=== PATIENT | male | born 1955 | race Caucasian/White ===

== ENCOUNTER 2024-07-01 13:15 | Inpatient (IN) | payer BC, MEDICAID ==
[~2024-07-01] VITALS: Ht 182.9 cm; Wt 95.0 kg
--- NOTE | 2024-07-01 15:03 | ED.PDOC ---
History of Present Illness HPI Comments 69-year-old male with a history of hypertension brought in by self, referred by urgent care for evaluation of possible osteomyelitis. Patient states he accidentally cut his right index finger with a knife about a week ago, and since that time he has developed redness, pain and swelling in his right index finger. The laceration has completely healed. He was seen at urgent Care today, had x- rays which showed following: Prominent soft tissue swelling in the 2nd digit. Possible foreign bodies adjacent to the tuft of the distal phalanx. Possible osteomyelitis in the distal phalanx of the 2nd digit. Correlate with clinical findings. If clinically indicated, MRI could be obtained to further characterize. Patient denies any fever, however states the pain is severe. He denies any numbness, weakness or limited range of motion. Chief Complaint: Upper Extremity Time Seen by MD: 14:20 Primary Care Provider: MARNIE Keane Notes: Nurses Notes, Medications, Allergies Allergies: Coded Allergies: NO KNOWN ALLERGIES (Unverified , 07/01/24) Information Source: Patient Mode of Arrival: Ambulatory Severity: Moderate Timing: Days Duration: Since onset, Days Prehospital treatment: None Past Medical History PAST MEDICAL HISTORY: HTN Surgical History: Denies all surgeries Family History Family History: Reviewed,noncontributory to illness, Unknown Social History Smoker: Non-Smoker Alcohol: Denies ETOH Use Drugs: Denies Drug Use Lives In: Home Constitutional: reports: others (Index finger on the right hand is swollen); denies: chills, diaphoresis, fatigue, fever, malaise, sweats, weakness EENTM: denies: blurred vision, double vision, ear bleeding, ear discharge, ear drainage, ear pain, ear ringing, eye pain, eye redness, hearing loss, mouth pain, mouth swelling, nasal discharge, nose bleeding, nose congestion, nose pain, photophobia, tearing, throat pain, throat swelling, voice changes, others Respiratory: denies: cough, hemoptysis, orthopnea, SOB at rest, shortness of breath, SOB with excertion, stridor, wheezing, others Cardiovascular: denies: chest pain, dizzy spells, diaphoresis, Dyspnea on exertion, edema, irregular heart beat, left arm pain, lightheadedness, palpit ations, PND, syncope, others Gastrointestinal: denies: abdomen distended, abdominal pain, blood streaked b owels, constipated, diarrhea, dysphagia, difficulty swallowing, hematemesis, melena, nausea, poor appetite, poor fluid intake, rectal bleeding, rectal pain, vomiting, others Genitourinary: denies: burning, dysuria, flank pain, frequency, hematuria, incontinence, penile discharge, penile sore, pain, testicle pain, testicle swelling, urgency, others Neurological: denies: dizziness, fainting, headache, left sided numbness, left sided weakness, numbness, paresthesia, pre-existing deficit, right sided numbness, right sided weakness, seizure, speech problems, tingling, tremors, weakness, others Musculoskeletal: denies: back pain, gout, joint pain, joint swelling, muscle pain, muscle stiffness, neck pain, others Integumetry: denies: bruises, change in color, change in hair/nails, dryness, laceration, lesions, lumps, rash, wounds, others Allergic/Immunocompromised: denies: Difficulty Healing, Frequent Infections, Hives, Itching, others Hematologic/Lymphatic: denies: anemia, blood clots, easy bleeding, easy bruisi ng, swollen glands, others Endocrine: denies: excessive hunger, excessive sweating, excessive thirst, exce ssive urination, flushing, intolerance to cold, intolerance to heat, unexplained weight gain, unexplained weight loss, others Psychiatric: denies: anxiety, bipolar disorder, depression, hopeless, panic disorder, schizophrenia, sleepless, suicidal, others All Other Systems: Reviewed and Negative Physical Exam General Appearance: No Apparent Distress HEENT: Normal ENT Inspection Neck: Full Range of Motion, Normal Inspection Respiratory: Lungs Clear, No Accessory Muscle Use, No Respiratory Distress, Normal Breath Sounds Cardiovascular: No Edema, No JVD, Regular Rate/Rhythm Breast Exam: Deferred Gastrointestinal: Non Tender, Soft Genitalia: Deferred Pelvic: Deferred Rectal: Deferred Extremities: Normal range of motion, No pedal edema, Swelling, Tender, Other (Right index finger diffuse soft tissue swelling and tenderness with moderate erythema. No fluctuance or discharge.) Neurologic: Alert, No Motor Deficits, Normal Affect, Normal Mood, No Sensory Deficits Cerebellar Function: NOT DONE Reflexes: NOT DONE Skin: Dry, Warm, Other (Right index finger erythema, greatest at the distal aspect.) Lymphatic: NOT DONE Was a procedure done? Was a procedure done?: No Differential Dx Considerations may include: Cellulitis, abscess, retained foreign body, osteomyelitis, sepsis, among others X-Ray, Labs, Meds, VS Vital Signs Date Time Temp Pulse Resp B/P (MAP) Pulse Ox O2 Delivery O2 Flow Rate FiO2 07/01/24 13:25 97.9 76 16 131/74 (93) 94 Lab Test 07/01/24 14:48 Range/Units White Blood Count 16.9 H 4.4-10.8 10^3/uL Red Blood Count 5.50 4.5-5.90 10^6/uL Hemoglobin 16.5 13.5-17.5 g/dL Hematocrit 48.1 41.0-53.0 % Mean Corpuscular Volume 87.5 80.0-100.0 fL Mean Corpuscular Hemoglobin 30.1 28.0-32.0 pg Mean Corpuscular Hemoglobin Concent 34.4 32.0-36.0 g/dL Red Cell Distribution Width 13.2 11.8-14.3 % Platelet Count 285 140-450 10^3/uL Mean Platelet Volume 8.7 6.9-10.8 fL Neutrophils (%) (Auto) 70.7 37.0-80.0 % Lymphocytes (%) (Auto) 15.9 10.0-50.0 % Monocytes (%) (Auto) 9.5 0.0-12.0 % Eosinophils (%) (Auto) 3.0 0.0-7.0 % Basophils (%) (Auto) 0.9 0.0-2.0 % Neutrophils # (Auto) 11.9 H 1.6-8.6 10 ^3/uL Lymphocytes # (Auto) 2.7 0.4-5.4 10 ^3/uL Monocytes # (Auto) 1.6 H 0-1.3 10 ^3/uL Eosinophils # (Auto) 0.5 0-0.8 10 ^3/uL Basophils # (Auto) 0.2 0-0.2 10 ^3/uL Nucleated Red Blood Cells 0.1 % Sodium Level 137 136-145 mmol/L Potassium Level 4.3 3.5-5.1 mmol/L Chloride Level 107 98-107 mmol/L Carbon Dioxide Level 20 20-31 mmol/L Anion Gap 10 5-15 Blood Urea Nitrogen 16 9-23 mg/dL Creatinine 0.98 0.700-1.30 mg/dL Glomerular Filtration Rate Calc 82 >90 mL/min BUN/Creatinine Ratio 16.3 10.0-20.0 Serum Glucose 91 74-106 mg/dL Lactic Acid Level 1.0 0.4-2.0 mmol/L Calcium Level 10.1 8.7-10.4 mg/dL X-Ray, Labs, Meds, VS Comment 69-year-old male with a history of hypertension presenting with right index finger pain, redness and swelling, referred by urgent care for possible osteomyelitis Vitals remarkable for oxygen saturation 94% on room air Exam remarkable for right index finger erythema, soft tissue swelling and tenderness Right hand x-ray report reviewed : Prominent soft tissue swelling in the 2nd digit. Possible foreign bodies adjacent to the tuft of the distal phalanx. Possible osteomyelitis in the distal phalanx of the 2nd digit. Correlate with clinical findings. If clinically indicated, MRI could be obtained to further characterize. CBC remarkable for WBC 16.9, BMP and lactate unremarkable. Patient treated with the following in the ED: Zosyn 4.5 g IV, morphine 4 mg IV, Zofran 4 mg IV, Tdap 0.5 mL IM On re-evaluation, patient stated pain had improved, vitals were stable, right upper extremity neurovascularly intact. Plan is to admit the patient for IV antibiotics and MRI to evaluate for osteomyelitis. Time of 1ST Reevaluation: 14:50 Reevaluation 1ST: Unchanged Time of 2ND Reevaluation: 17:01 Reevaluation 2ND: Improved Patient Education/Counseling: Diagnosis, Treatment, Prognosis Family Education/Counseling: No Family Present Additional Information - The following tests were ordered, and results were reviewed by me: Labs, PHA and review urgent care X-ray - I reviewed and agreed with the following test results read by other provider: UC X-ray - I discussed treatments and results with medical personnel and: (consultants, family) Departure 1 Departure Time of Disposition: 17:01 Impression: Primary Impression: Finger osteomyelitis, right Disposition: 09 ADMITTED INPATIENT Admit to: Med Surg Condition: Fair Critical Care Note Critical Care Time?: No Stability Stability form required: No Heart Score Heart Score: Heart Score Response (Comments) Value History N/A 0 EKG N/A 0 Age N/A 0 Risk Factors N/A 0 Troponin N/A 0 Total 0 I personally scribed for KYLIE PHAM MD ([email or web address]) on 07/01/24 at 15:03. Electronically submitted by Ajay Joyner ([email or web address]). KYLIE PHAM MD Jul 01, 2024 15:03
[2024-07-01 15:16] LABS: Anion Gap 10 (5-15); Carbon Dioxide 20 mmol/L (20-31); Chloride 107 mmol/L (98-107); Potassium 4.3 mmol/L (3.5-5.1); Sodium 137 mmol/L (136-145)
[2024-07-01 15:17] LABS: Calcium 10.1 mg/dL (8.7-10.4)
[2024-07-01 15:19] LABS: Basophils # (auto) 0.2 10 ^3/uL (0-0.2); Basophils % (auto) 0.9 % (0.0-2.0); Eosinophils # (auto) 0.5 10 ^3/uL (0-0.8); Hematocrit 48.1 % (41.0-53.0); Hemoglobin 16.5 g/dL (13.5-17.5); Lymphocytes # (auto) 2.7 10 ^3/uL (0.4-5.4); Lymphocytes % (auto) 15.9 % (10.0-50.0); Mean Corpuscular Hemoglobin 30.1 pg (28.0-32.0); Mean Corpuscular Hgb Conc. 34.4 g/dL (32.0-36.0); Mean Corpuscular Volume 87.5 fL (80.0-100.0); Monocytes # (auto) 1.6 10 ^3/uL (0-1.3); Monocytes % (auto) 9.5 % (0.0-12.0); Neutrophils # (auto) 11.9 10 ^3/uL (1.6-8.6); Neutrophils % (auto) 70.7 % (37.0-80.0); Nucleated Red Blood Cells % 0.1 %; Platelet Count (auto) 285 10^3/uL (140-450); Red Cell Distribution Width 13.2 % (11.8-14.3); White Blood Cell 16.9 10^3/uL (4.4-10.8)
[2024-07-01 15:22] LABS: BUN/Creatinine Ratio 16.3 (10.0-20.0); Blood Urea Nitrogen 16 mg/dL (9-23); Glucose 91 mg/dL (74-106)
[2024-07-01] MEDS ORDERED: ONDANSETRON HCL 4 MG/2 ML VIAL IV PRN (18:15)
[2024-07-01] MEDS ORDERED: ACETAMINOPHEN 325 MG TAB PO PRN (18:15)
[2024-07-01] MEDS ORDERED: MAALOX PLUS or MAALOX 30 ML PO PRN (18:15)
[2024-07-01] MEDS ORDERED: VANCOMYCIN PER PHARMACY 0 MG IV SCH (18:15)
[2024-07-01] MEDS ORDERED: DOCUSATE SOD 100 MG CAP PO PRN (18:15)
--- NOTE | 2024-07-01 18:30 | DVHHP2 ---
History of Present Illness Reason for Visit: Hand pain History of Present Illness 69-year-old patient comes into the ED for evaluation of recommendation for admission patient has a history of hypertension initially was evaluated in urgent care urgent care since the patient to the ED after cutting himself with a knife 2 weeks ago the initial feels the patient has possible osteo and was recommended for further evaluation patient was seen in the ED recommended for admission and further evaluation Cardiovascular: HTN Review of Systems Constitutional: Yes: Weakness; No: Fever, Chills, Sweats, Malaise, Other Eyes: No: Pain, Vision change, Conjunctivae inflammation, Eyelid inflammation, Other, Redness ENT: No: Ear pain, Ear discharge, Nose pain, Nose discharge, Nose congestion, Mouth pain, Mouth swelling, Throat pain, Throat swelling, Other Respiratory: No: Cough, Dry, Shortness of breath, SOB with excertion, Wheezing, Hemoptysis, Pleuritic Pain, Sputum, Wheezing, Other Cardiovascular: No: Chest Pain, Palpitations, Orthopnea, Paroxysmal Noc. Dyspnea, Edema, Lt Headedness, Other Gastrointestinal: No: Nausea, Vomiting, Abdominal Pain, Diarrhea, Constipation, Melena, Hematochezia, Other Genitourinary: No Dysuria, No Frequency, No Incontinence, No Hematuria, No Retention, No Other Musculoskeletal: hand pain; No: other, neck pain, shoulder pain, arm pain, back pain, leg pain, foot pain Skin: No: Rash, Lesions, Jaundice, Bruising, Other Neurological: No: Weakness, Numbness, Incoordination, Change in speech, Confusion, Seizures, Other Allergies: Coded Allergies: NO KNOWN ALLERGIES (Unverified , 07/01/24) Exam Vital Signs Vital Signs Date Time Temp Pulse Resp B/P (MAP) Pulse Ox O2 Delivery O2 Flow Rate FiO2 07/01/24 13:25 97.9 76 16 131/74 (93) 94 General Appearance: Alert, Oriented X3, mild distress HEENT: Atraumatic, PERRLA, EOMI Respiratory: Clear to auscultation, Normal air movement Cardiovascular: Normal S1, Normal S2 Abdominal: Normal bowel sounds, Soft, No tenderness Extremities: No clubbing, No cyanosis Skin: No rashes, No breakdown Neuro: Normal gait, Normal speech Psych/Mental Status: Mood NL Labs/Xrays Labs Test 12/1/24 14:48 Range/Units White Blood Count 16.9 H 4.4-10.8 10^3/uL Red Blood Count 5.50 4.5-5.90 10^6/uL Hemoglobin 16.5 13.5-17.5 g/dL Hematocrit 48.1 41.0-53.0 % Mean Corpuscular Volume 87.5 80.0-100.0 fL Mean Corpuscular Hemoglobin 30.1 28.0-32.0 pg Mean Corpuscular Hemoglobin Concent 34.4 32.0-36.0 g/dL Red Cell Distribution Width 13.2 11.8-14.3 % Platelet Count 285 140-450 10^3/uL Mean Platelet Volume 8.7 6.9-10.8 fL Neutrophils (%) (Auto) 70.7 37.0-80.0 % Lymphocytes (%) (Auto) 15.9 10.0-50.0 % Monocytes (%) (Auto) 9.5 0.0-12.0 % Eosinophils (%) (Auto) 3.0 0.0-7.0 % Basophils (%) (Auto) 0.9 0.0-2.0 % Neutrophils # (Auto) 11.9 H 1.6-8.6 10 ^3/uL Lymphocytes # (Auto) 2.7 0.4-5.4 10 ^3/uL Monocytes # (Auto) 1.6 H 0-1.3 10 ^3/uL Eosinophils # (Auto) 0.5 0-0.8 10 ^3/uL Basophils # (Auto) 0.2 0-0.2 10 ^3/uL Nucleated Red Blood Cells 0.1 % Sodium Level 137 136-145 mmol/L Potassium Level 4.3 3.5-5.1 mmol/L Chloride Level 107 98-107 mmol/L Carbon Dioxide Level 20 20-31 mmol/L Anion Gap 10 5-15 Blood Urea Nitrogen 16 9-23 mg/dL Creatinine 0.98 0.700-1.30 mg/dL Glomerular Filtration Rate Calc 82 >90 mL/min BUN/Creatinine Ratio 16.3 10.0-20.0 Serum Glucose 91 74-106 mg/dL Lactic Acid Level 1.0 0.4-2.0 mmol/L Calcium Level 10.1 8.7-10.4 mg/dL Assessment/Plan Assessment/Plan Admit to med surge Suspected osteomyelitis IV antibiotics IV hydration Surgical evaluation P.r.n. medications for pain Plan discussed with: Patient My Orders Orders - JENNIFER SANDY MD Procedure Category Date Status Time Vancomycin Per [facility] 07/01/24 Verified Pharmacy 18:15 Zosyn Extended [facility] 07/01/24 Verified Infusion 22:00 R Hand 3 View Xray XY 07/01/24 Verified 18:05 Admit ADMIT 07/01/24 Verified 18:05 Code Status CODE 07/01/24 Verified 18:05 Vital Signs [facility] 07/01/24 Verified 18:05 Review Orders With [facility] 07/01/24 Verified Adm.Md 18:05 Regular Diet DIET 07/01/24 Verified Dinner Sodium Chloride 0.9% [facility] 07/01/24 Verified 18:15 Lorazepam Tablet [facility] 07/01/24 Verified (Ativan Tablet) 18:15 Alum & Mag [facility] 07/01/24 Verified Hydrox-Simethicone 18:15 Docusate Sodium [facility] 07/01/24 Verified Capsule (Colace 18:15 Acetaminophen Tablet [facility] 07/01/24 Verified (Tylenol Tablet) 18:15 Temazepam (Restoril) [facility] 07/01/24 Verified 18:15 Notify Md Of Changes [facility] 07/01/24 Verified From Base 18:05 Advance Directive [facility] 07/01/24 Verified 18:05 Basic Metabolic Panel LAB 07/02/24 Verified 04:00 Complete Blood Count LAB 07/02/24 Verified 04:00 Patient Condition ORDERS 07/01/24 Verified 18:05 Allergies [facility] 07/01/24 Verified 18:05 Hydrocodone-Acet [facility] 07/01/24 Verified 5/325mg Tab ([place] 18:15 Ondansetron Hcl [facility] 07/01/24 Verified (Zofran) 18:15 Morphine 2mg Iv Q4hprn [facility] 07/01/24 Verified 18:15 Notify Md Of Changes [facility] 07/01/24 Verified From Base 18:05 Oxygen By Nasal RT 07/01/24 Verified Cannula 18:05 Problem List: (1) Finger osteomyelitis, right Date of Service: Jul 01, 2024 Billing Provider: JENNIFER SANDY MD Common Visit Codes: [id number] INP/OBS CARE (HIGH) JENNIFER SANDY MD Jul 01, 2024 18:30
--- NOTE | 2024-07-01 18:47 | DVH ---
CLINICAL INDICATION: osteo TECHNIQUE: 4 radiographic views of the hand were obtained. Comparison: None FINDINGS/IMPRESSION: Soft tissue swelling is noted over the distal phalanx of the right index finger with diffuse osteopor otic changes of the distal phalanx. Can not exclude osteomyelitis. The visualized joint space is well maintained. The alignment is anatomical. There is no radiopaque foreign body.
[2024-07-01] MEDS: TETANUS-DIPTH-ACEL PERTUSSIS 0.5ML SYR Tdap IM ONE (20:20)
[2024-07-01 20:38] VITALS: PULSE 85; RESP 17; O2SAT 94
[2024-07-01] MEDS: ONDANSETRON HCL 4 MG/2 ML VIAL IV ONE (20:56)
[2024-07-01] MEDS: MORPHINE SULFATE 4 MG/ML SYR/VIAL IV ONE (20:57)
[2024-07-01] MEDS: PIPERACILLIN-TAZO 4.5GM 100 ML IV ONE (21:14)
[2024-07-01] MEDS: SODIUM CHLORIDE 0.9% 1,000 ML IV SCH (21:26)
[2024-07-01] MEDS: VANCOMYCIN 1GM/250ML KIT 200 ML IV ONE (22:32)
[2024-07-02 00:04] LABS: Urine Bacteria None Seen /hpf (None Seen)
[2024-07-02 00:17] LABS: Urine Blood Negative /uL (Negative); Urine Clarity Clear (Clear); Urine Color Light-Yellow (Yellow); Urine Protein, UAD TRACE (Negative); Urine Specific Gravity 1.022 (1.001-1.035); Urine Urobilinogen Normal (Negative); Urine WBC 3 /hpf (0 - 3); Urine pH 5.5 (5.0-9.0)
[2024-07-02] MEDS: VANCOMYCIN 1GM/250ML KIT 200 ML IV ONE (01:50)
[2024-07-02] MEDS: PIPERACILLIN-TAZOB 3.375GM 100 ML IV SCH (01:55)
[2024-07-02] MEDS: MORPHINE SULFATE INJ 2 MG/ml SYRG IV PRN (05:33)
[2024-07-02 05:44] LABS: Basophils # (auto) 0 10 ^3/uL (0-0.2); Basophils % (auto) 0.3 % (0.0-2.0); Eosinophils # (auto) 0.4 10 ^3/uL (0-0.8); Eosinophils % (auto) 2.7 % (0.0-7.0); Hematocrit 44.8 % (41.0-53.0); Hemoglobin 15.4 g/dL (13.5-17.5); Lymphocytes # (auto) 2.3 10 ^3/uL (0.4-5.4); Lymphocytes % (auto) 16.9 % (10.0-50.0); Mean Corpuscular Hgb Conc. 34.3 g/dL (32.0-36.0); Mean Corpuscular Volume 87.5 fL (80.0-100.0); Monocytes # (auto) 1.4 10 ^3/uL (0-1.3); Monocytes % (auto) 10.5 % (0.0-12.0); Neutrophils # (auto) 9.6 10 ^3/uL (1.6-8.6); Neutrophils % (auto) 69.6 % (37.0-80.0); Platelet Count (auto) 255 10^3/uL (140-450); Red Blood Cells 5.12 10^6/uL (4.5-5.90); Red Cell Distribution Width 13.3 % (11.8-14.3); White Blood Cell 13.8 10^3/uL (4.4-10.8)
[2024-07-02 05:47] LABS: Chloride 107 mmol/L (98-107); Potassium 4.2 mmol/L (3.5-5.1); Sodium 138 mmol/L (136-145)
[2024-07-02 05:48] LABS: Anion Gap 10 (5-15); Carbon Dioxide 21 mmol/L (20-31)
[2024-07-02 05:49] LABS: Calcium 9.7 mg/dL (8.7-10.4)
[2024-07-02 05:53] LABS: BUN/Creatinine Ratio 16.3 (10.0-20.0); Blood Urea Nitrogen 16 mg/dL (9-23); Glucose 92 mg/dL (74-106)
[2024-07-02 08:00] VITALS: PULSE 88; RESP 18; O2SAT 97
[2024-07-02] MEDS: HYDROcodone-ACET 5/325MG TAB PO PRN (13:04)
[2024-07-02] MEDS: LORazepam 0.5 MG TAB PO PRN (14:57)
--- NOTE | 2024-07-02 16:19 | DVHPN2 ---
Subjective 69 year old male history of hypertension, prediabetic, injured his right index finger about a week ago while working on a truck when his hand was crushed by a metal piece. He developed infection and swelling of the distal phalanx of his index finger He came here yesterday because he was getting worse Changes from previous H/P or p: Changes Eyes: No Pain, No Vision change, No Conjunctivae inflammation, No Eyelid inflammation, No Other, No Redness ENT: No Ear pain, No Ear discharge, No Nose pain, No Nose discharge, No Nose congestion, No Mouth pain, No Mouth swelling, No Throat pain, No Throat swelling, No Other Cardiovascular: No Chest Pain, No Palpitations, No Orthopnea, No Paroxysmal Noc. Dyspnea, No Edema, No Lt Headedness, No Other Respiratory: No Cough, No Dry, No Shortness of breath, No SOB with excertion, No Wheezing, No Hemoptysis, No Pleuritic Pain, No Sputum, No Other Gastrointestinal: No Nausea, No Vomiting, No Abdominal Pain, No Diarrhea, No Constipation, No Melena, No Hematochezia, No Other Genitourinary: No Dysuria, No Frequency, No Incontinence, No Hematuria, No Retention, No Other Musculoskeletal: No other, No neck pain, No shoulder pain, No arm pain, No back pain; hand pain; No leg pain, No foot pain Skin: No Rash, No Lesions, No Jaundice, No Bruising, No Other Objective Vitals Vital Signs Date Time Temp Pulse Resp B/P (MAP) Pulse Ox O2 Delivery O2 Flow Rate FiO2 07/02/24 14:36 98.3 78 18 114/66 (82) 91 98.3 07/02/24 08:00 Room Air* 0 21 Intake/Output Intake and Output 07/02/24 07:00 Intake Total 300 ml Balance 300 ml Intake IV Total 300 ml General Appearance: Alert, Oriented X3, Cooperative, No acute distress Lungs: Clear to auscultation Cardiovascular: Regular rate, Normal S1 Abdomen: Normal bowel sounds, Soft, No tenderness Extremities: No edema Medications Current Medications Medications Dose Ordered Sig/[place] Route Start Time Stop Time Status Last Admin Dose Admin Vancomycin HCl 0 ml @ 0 mls/hr UD IV 07/01/24 18:15 Piperacillin Sod/ Tazobactam Sod 100 ml @ 100 mls/hr Q8HR IV 07/01/24 22:00 07/02/24 14:32 100 MLS/HR Lorazepam 0.5 mg Q6HP PRN PO 07/01/24 18:15 07/02/24 14:57 0.5 MG Al Hydrox/Mg Hydrox/Simethicone 30 ml Q6HP PRN PO 07/01/24 18:15 Docusate Sodium 100 mg BIDPRN PRN PO 07/01/24 18:15 Acetaminophen 650 mg Q6HP PRN PO 07/01/24 18:15 Temazepam 15 mg QHSP PRN PO 07/01/24 18:15 Acetaminophen/ Hydrocodone Bitart 1 tab Q4HP PRN PO 07/01/24 18:15 07/02/24 13:04 1 TAB Ondansetron HCl 4 mg Q4HP PRN IV 07/01/24 18:15 Morphine Sulfate 2 mg Q4HPRN PRN IV 07/01/24 18:15 07/02/24 05:33 2 MG Vancomycin HCl 150 ml @ 150 mls/hr Q12H IV 07/02/24 18:00 Cancel Vancomycin HCl 750 mg/Dextrose 100 ml @ 100 mls/hr Q12H IV 07/02/24 18:00 Laboratory Results Laboratory Tests 07/02/24 04:55 Chemistry Test 07/02/24 04:55 Calcium Level 9.7 mg/dL (8.7-10.4) Urinalysis Test 07/02/24 00:00 Urine Color Light-yellow (Yellow) Urine Clarity Clear (Clear) Urine pH 5.5 (5.0-9.0) Urine Specific [place] 1.022 (1.001-1.035) Urine Protein Trace (Negative) H Urine Ketones Trace (Negative) Urine Blood Negative /uL (Negative) Urine Nitrite Negative (Negative) Urine Bilirubin Negative (Negative) Urine Urobilinogen Normal mg/dL (Negative) Urine Leukocyte Esterase Negative /uL (Negative) Urine RBC 1 /hpf (0 - 3) Urine WBC 3 /hpf (0 - 3) Urine Squamous Epithelial Cells Few /hpf (<5) Urine Bacteria None seen /hpf (None Seen) Urine Glucose Normal mg/dL (Normal) Assessment/Plan Assessment/Plan Cellulitis of the right index finger, rule out abscess Rule out osteomyelitis Prediabetic Hypertension Leukocytosis Plan Continue IV antibiotics Zosyn and vancomycin Orthopedic consultation Resume the home medications CT scan of the right hand to rule out abscess formation Plan discussed with: Patient My Orders Orders - ASIA HUBER MD Procedure Category Date Status Time *Consult Dr. Tavera CONS 07/02/24 Verified Lisa 16:15 Ct R Hand Wo Contrast CT 07/02/24 Verified 16:15 Date of Service: Jul 02, 2024 Billing Provider: ASIA HUBER MD Common Visit Codes: NOT BILLABLE ASIA HUBER MD Jul 02, 2024 16:19
[2024-07-02] MEDS ORDERED: VANCOMYCIN 750mg/150ml 150 ML IV SCH (18:00)
[2024-07-02 18:30] VITALS: BP_SYST 136; BP_SYST 137; BP_DIAS 79; BP_DIAS 82; PULSE 71; PULSE 76; RESP 18; RESP 19; TEMP 97.7; TEMP 98.7; O2SAT 94
[2024-07-02] MEDS: VANCOMYCIN 750MG VIAL 750 MG in D5W 5% 100 ML IV SCH (20:18)
[2024-07-02 21:00] VITALS: BP 128/79; PULSE 80; RESP 18; TEMP 97.8; O2SAT 93
[2024-07-03 01:00] VITALS: BP 137/76; PULSE 74; RESP 18; TEMP 97.6; O2SAT 91
--- NOTE | 2024-07-03 03:43 | DVH ---
INDICATION: index finger cellulitis rule out abscess COMPARISON: Right hand radiograph dated 07/01/2024 TECHNIQUE: CT of the right hand was performed without contrast. Volume transverse images were obtaine d and reconstructed in multiple planes using bone and soft tissue algorithms. CONTRAST: None Radiation Dose Information: CTDI volume is 51.12 mGy. Dose-length product is 1625.87 mGy*cm FINDINGS: The alignment is normal. Advanced degenerative changes throughout the carpal bones, radiocarpal joint space and 1st CMC. There is no fracture or dislocation. Diffuse soft-tissue edema and swelling most prominent around the distal 2nd digit. Bony destructive changes are associated with the distal phalanx of the 2nd digit. No discrete fluid collection or abscess. IMPRESSION: Bony destructive changes and soft-tissue edema and swelling associated with the distal phalanx of the 2nd digit is suspicious for cellulitis and osteomyelitis. Clinical correlation advised. All CT scans at this medical facility are performed using dose modulation techniques as appropriate t o a performed exam including the following: Automated exposure control was utilized; adjustment of th e MA and/or KV according to patient size; and use of iterative reconstruction technique.
[2024-07-03 05:00] VITALS: BP 132/79; PULSE 70; RESP 18; TEMP 97.8; O2SAT 95
[2024-07-03] MEDS ORDERED: LISI40TA16 PO (06:35)
[2024-07-03] MEDS ORDERED: AMLO1TAB23 PO (06:35)
[2024-07-03] MEDS ORDERED: METF-370 PO (06:35)
[2024-07-03] MEDS ORDERED: SILD100T73 PO (06:35)
[2024-07-03] MEDS ORDERED: ALBUAER3 IN (06:36)
[2024-07-03 07:41] LABS: Basophils # (auto) 0 10 ^3/uL (0-0.2); Basophils % (auto) 0.3 % (0.0-2.0); Eosinophils # (auto) 0.5 10 ^3/uL (0-0.8); Eosinophils % (auto) 3.8 % (0.0-7.0); Hematocrit 44.6 % (41.0-53.0); Hemoglobin 15.2 g/dL (13.5-17.5); Lymphocytes # (auto) 1.9 10 ^3/uL (0.4-5.4); Lymphocytes % (auto) 14.4 % (10.0-50.0); Mean Corpuscular Hemoglobin 29.9 pg (28.0-32.0); Mean Corpuscular Hgb Conc. 34.1 g/dL (32.0-36.0); Mean Corpuscular Volume 87.7 fL (80.0-100.0); Monocytes # (auto) 1.4 10 ^3/uL (0-1.3); Monocytes % (auto) 10.7 % (0.0-12.0); Neutrophils # (auto) 9.1 10 ^3/uL (1.6-8.6); Neutrophils % (auto) 70.8 % (37.0-80.0); Platelet Count (auto) 238 10^3/uL (140-450); Red Blood Cells 5.09 10^6/uL (4.5-5.90); Red Cell Distribution Width 13.1 % (11.8-14.3); White Blood Cell 12.8 10^3/uL (4.4-10.8)
[2024-07-03 09:00] VITALS: BP 140/75; PULSE 67; RESP 18; TEMP 98; O2SAT 96
--- NOTE | 2024-07-03 12:31 | DVHINCON2 ---
Date of service: Jul 03, 2024 Reason for Consultation Right index finger infection History of Present Illness Mr. Rojas is a 69-year-old male who came to the hospital due to him cutting himself with a knife approximately one week ago where the patient noted that the next day he could not find the laceration and thought he was healed but began developing swelling and pain that progressively worsened. Patient came into the urgent care and was evaluated and advised to come to the emergency department and was admitted due to concerns of possible osteomyelitis. Patient is otherwise feeling well denying any other complaints or concerns during my evaluation denying any chest pain, shortness of breath, nausea, vomiting, fever, or chills. Past Medical History Hypertension Past Surgical History Denies Family History: Diabetes mellitus G8 FATHER FH: kidney disease G8 FATHER Family History Noncontributory Social History Patient denies smoking, EtOH, or illicit substance abuse Allergies: Coded Allergies: NO KNOWN ALLERGIES (Unverified , 07/01/24) Home Meds Reported Medications Albuterol Sulfate (VENTOLIN MDI) 90 Mcg Ih, 108 MCG IN, INH 07/03/24 Lisinopril (Lisinopril) 40 Mg Tab, 1 TAB PO DAILY 07/03/24 Metformin Hydrochloride (Metformin Hcl) 500 Mg Tab, 1 TAB PO BID 07/03/24 Amlodipine Besylate (Amlodipine Besylate) 10 Mg Tab, 1 TAB PO DAILY 07/03/24 Sildenafil Citrate (Sildenafil Citrate) 100 Mg Tab, TAB PO 07/03/24 Current Medications Current Medications Medications (Trade) Dose Ordered Sig/[place] Route PRN Reason Start Time Stop Time Status Last Admin Vancomycin HCl 150 ml @ 150 mls/hr Q12H IV 07/02/24 18:00 Cancel Vancomycin HCl 750 mg/Dextrose 100 ml @ 100 mls/hr Q12H IV 07/02/24 18:00 07/03/24 06:28 Review of Systems 10 point review of systems negative except as per HPI Vital Signs Vital Signs Date Time Temp Pulse Resp B/P (MAP) Pulse Ox O2 Delivery O2 Flow Rate FiO2 07/03/24 09:00 98.0 67 18 140/75 (96) 96 98.0 07/03/24 08:00 Room Air* 0 21 Physical Exam General appearance: A&O x4 in no acute distress HEENT: Normal ENT inspection, pharynx normal, TMs normal Neck: Full range of motion, nontender, normal inspection Respiratory: Chest nontender, without accessory muscle use, no respiratory distress Cardiovascular: No edema, no JVD, normal peripheral pulses Gastrointestinal: Soft, nontender, no organomegaly. Musculoskeletal: Right hand range of motion grossly intact with the exception to his right index finger which is grossly limited with pain on slight movement, normal capillary refill, neurovascularly intact. Skin: Dry, normal color, warm Lymphatic: No adenopathy Labs/Diagnostic Data Labs Test 07/03/24 06:20 07/02/24 04:55 07/02/24 00:00 07/01/24 14:48 Range/Units White Blood Count 12.8 H 4.4-10.8 10^3/uL Red Blood Count 5.09 4.5-5.90 10^6/uL Hemoglobin 15.2 13.5-17.5 g/dL Hematocrit 44.6 41.0-53.0 % Mean Corpuscular Volume 87.7 80.0-100.0 fL Mean Corpuscular Hemoglobin 29.9 28.0-32.0 pg Mean Corpuscular Hemoglobin Concent 34.1 32.0-36.0 g/dL Red Cell Distribution Width 13.1 11.8-14.3 % Platelet Count 238 140-450 10^3/uL Mean Platelet Volume 8.7 6.9-10.8 fL Neutrophils (%) (Auto) 70.8 37.0-80.0 % Lymphocytes (%) (Auto) 14.4 10.0-50.0 % Monocytes (%) (Auto) 10.7 0.0-12.0 % Eosinophils (%) (Auto) 3.8 0.0-7.0 % Basophils (%) (Auto) 0.3 0.0-2.0 % Neutrophils # (Auto) 9.1 H 1.6-8.6 10 ^3/uL Lymphocytes # (Auto) 1.9 0.4-5.4 10 ^3/uL Monocytes # (Auto) 1.4 H 0-1.3 10 ^3/uL Eosinophils # (Auto) 0.5 0-0.8 10 ^3/uL Basophils # (Auto) 0 0-0.2 10 ^3/uL Nucleated Red Blood Cells 0.0 % Creatinine 1.07 0.700-1.30 mg/dL Glomerular Filtration Rate Calc 74 >90 mL/min Hemoglobin A1c 5.8 H <5.7 % A1C Sodium Level 138 136-145 mmol/L Potassium Level 4.2 3.5-5.1 mmol/L Chloride Level 107 98-107 mmol/L Carbon Dioxide Level 21 20-31 mmol/L Anion Gap 10 5-15 Blood Urea Nitrogen 16 9-23 mg/dL BUN/Creatinine Ratio 16.3 10.0-20.0 Serum Glucose 92 74-106 mg/dL Calcium Level 9.7 8.7-10.4 mg/dL Urine Color Light-yellow Yellow Urine Clarity Clear Clear Urine pH 5.5 5.0-9.0 Urine Specific [place] 1.022 1.001-1.035 Urine Protein Trace H Negative Urine Ketones Trace Negative Urine Blood Negative Negative /uL Urine Nitrite Negative Negative Urine Bilirubin Negative Negative Urine Urobilinogen Normal Negative mg/dL Urine Leukocyte Esterase Negative Negative /uL Urine RBC 1 0 - 3 /hpf Urine WBC 3 0 - 3 /hpf Urine Squamous Epithelial Cells Few <5 /hpf Urine Bacteria None seen None Seen /hpf Urine Glucose Normal Normal mg/dL Lactic Acid Level 1.0 0.4-2.0 mmol/L Right hand x-ray reviewed and demonstrated: Soft tissue swelling is noted over the distal phalanx of the right index finger with diffuse osteoporotic changes of the distal phalanx. Can not exclude osteomyelitis. The visualized joint space is well maintained. The alignment is anatomical. There is no radiopaque foreign body. Right hand CT scan reviewed and demonstrated: Bony destructive changes and soft- tissue edema and swelling associated with the distal phalanx of the 2nd digit. Assessment Right index finger cellulitis Plan/Recommendation I had a lengthy discussion with the patient and after discussing his case and reviewing his imaging studies with Dr. Quevedo we have recommended against any surgical intervention at this time and instead advised to continue with conservative treatment with IV antibiotics and recommend a consult by Infectious Disease. We also recommend the patient to follow up with a hand surgeon on an outpatient basis for further evaluation and treatment options. Patient understood and agreed. Thank you for allowing us to participate in the care of your patient. Plan discussed with: Patient MCKAY PARDO Cher SPAULDING Jul 03, 2024 12:31
[2024-07-03 13:00] VITALS: BP 131/83; PULSE 78; RESP 20; TEMP 98; O2SAT 94
--- NOTE | 2024-07-03 14:33 | DVHPN2 ---
Subjective No change Still had swelling and pain in the right index finger Changes from previous H/P or p: Changes Eyes: No Pain, No Vision change, No Conjunctivae inflammation, No Eyelid inflammation, No Other, No Redness ENT: No Ear pain, No Ear discharge, No Nose pain, No Nose discharge, No Nose congestion, No Mouth pain, No Mouth swelling, No Throat pain, No Throat swelling, No Other Cardiovascular: No Chest Pain, No Palpitations, No Orthopnea, No Paroxysmal Noc. Dyspnea, No Edema, No Lt Headedness, No Other Respiratory: No Cough, No Dry, No Shortness of breath, No SOB with excertion, No Wheezing, No Hemoptysis, No Pleuritic Pain, No Sputum, No Other Gastrointestinal: No Nausea, No Vomiting, No Abdominal Pain, No Diarrhea, No Constipation, No Melena, No Hematochezia, No Other Genitourinary: No Dysuria, No Frequency, No Incontinence, No Hematuria, No Retention, No Other Musculoskeletal: No other, No neck pain, No shoulder pain, No arm pain, No back pain; hand pain; No leg pain, No foot pain Skin: No Rash, No Lesions, No Jaundice, No Bruising, No Other Objective Vitals Vital Signs Date Time Temp Pulse Resp B/P (MAP) Pulse Ox O2 Delivery O2 Flow Rate FiO2 07/03/24 13:20 66 19 131/81 07/03/24 13:00 98.0 94 98.0 07/03/24 08:00 Room Air* 0 21 Intake/Output Intake and Output 07/03/24 07:00 Intake Total 1640 ml Balance 1640 ml Intake Oral 900 ml IV Total 740 ml # Voids 2 General Appearance: Alert, Oriented X3, Cooperative, No acute distress Lungs: Clear to auscultation Cardiovascular: Regular rate, Normal S1 Abdomen: Normal bowel sounds, Soft, No tenderness Extremities: No edema Medications Current Medications Medications Dose Ordered Sig/[place] Route Start Time Stop Time Status Last Admin Dose Admin Vancomycin HCl 0 ml @ 0 mls/hr UD IV 07/01/24 18:15 Piperacillin Sod/ Tazobactam Sod 100 ml @ 100 mls/hr Q8HR IV 07/01/24 22:00 07/03/24 13:09 100 MLS/HR Lorazepam 0.5 mg Q6HP PRN PO 07/01/24 18:15 07/02/24 14:57 0.5 MG Al Hydrox/Mg Hydrox/Simethicone 30 ml Q6HP PRN PO 07/01/24 18:15 Docusate Sodium 100 mg BIDPRN PRN PO 07/01/24 18:15 Acetaminophen 650 mg Q6HP PRN PO 07/01/24 18:15 Temazepam 15 mg QHSP PRN PO 07/01/24 18:15 Acetaminophen/ Hydrocodone Bitart 1 tab Q4HP PRN PO 07/01/24 18:15 07/03/24 11:21 1 TAB Ondansetron HCl 4 mg Q4HP PRN IV 07/01/24 18:15 Morphine Sulfate 2 mg Q4HPRN PRN IV 07/01/24 18:15 07/03/24 13:20 2 MG Vancomycin HCl 150 ml @ 150 mls/hr Q12H IV 07/02/24 18:00 Cancel Vancomycin HCl 750 mg/Dextrose 100 ml @ 100 mls/hr Q12H IV 07/02/24 18:00 07/03/24 06:28 100 MLS/HR Laboratory Results Laboratory Tests 07/02/24 04:55 07/03/24 06:20 HgA1c, TSH Test 07/03/24 06:20 Hemoglobin A1c 5.8 % A1C (<5.7) H Urinalysis Test 07/02/24 00:00 Urine Color Light-yellow (Yellow) Urine Clarity Clear (Clear) Urine pH 5.5 (5.0-9.0) Urine Specific [place] 1.022 (1.001-1.035) Urine Protein Trace (Negative) H Urine Ketones Trace (Negative) Urine Blood Negative /uL (Negative) Urine Nitrite Negative (Negative) Urine Bilirubin Negative (Negative) Urine Urobilinogen Normal mg/dL (Negative) Urine Leukocyte Esterase Negative /uL (Negative) Urine RBC 1 /hpf (0 - 3) Urine WBC 3 /hpf (0 - 3) Urine Squamous Epithelial Cells Few /hpf (<5) Urine Bacteria None seen /hpf (None Seen) Urine Glucose Normal mg/dL (Normal) Assessment/Plan Assessment/Plan Cellulitis of the right index finger, rule out abscess Rule out osteomyelitis Prediabetic Hypertension Leukocytosis Plan Continue IV antibiotics Zosyn and vancomycin Orthopedic consultation Resume the home medications CT scan of the right hand to rule out abscess formation 07/03/2024: Continue IV antibiotics with Zosyn and vancomycin Consult infectious disease Orthopedic consultation was obtained, the recommendation is for IV antibiotics and conservative management and Infectious Disease consult and no surgery Plan discussed with: Patient My Orders Orders - ASIA HUBER MD Procedure Category Date Status Time *Consult Dr. Tavera CONS 07/02/24 Transmitted Lisa 16:15 Ct R Hand Wo Contrast CT 07/02/24 Resulted 16:15 Date of Service: Jul 03, 2024 Billing Provider: ASIA HUBER MD Common Visit Codes: NOT BILLABLE ASIA HUBER MD Jul 03, 2024 14:33
[2024-07-03 21:00] VITALS: BP 132/73; PULSE 62; RESP 18; TEMP 97.8; O2SAT 98
[2024-07-03] MEDS: TEMAZEPAM 15 MG CAP PO PRN (22:40)
[2024-07-04 01:00] VITALS: BP 129/77; PULSE 64; RESP 18; TEMP 98.8; O2SAT 95
[2024-07-04 05:00] VITALS: BP 131/75; PULSE 70; RESP 18; TEMP 97.9; O2SAT 96
[2024-07-04 08:00] VITALS: PULSE 68
[2024-07-04 09:00] VITALS: BP 150/81; PULSE 68; RESP 20; TEMP 98.2; O2SAT 96
--- NOTE | 2024-07-04 09:45 | DVHPN2 ---
Subjective The right index finger is more swollen at the 2nd phalanx now is there is a collection of fluid and fluctuation and dark skin color at the flexor surface Changes from previous H/P or p: Changes Eyes: No Pain, No Vision change, No Conjunctivae inflammation, No Eyelid inflammation, No Other, No Redness ENT: No Ear pain, No Ear discharge, No Nose pain, No Nose discharge, No Nose congestion, No Mouth pain, No Mouth swelling, No Throat pain, No Throat swelling, No Other Cardiovascular: No Chest Pain, No Palpitations, No Orthopnea, No Paroxysmal Noc. Dyspnea, No Edema, No Lt Headedness, No Other Respiratory: No Cough, No Dry, No Shortness of breath, No SOB with excertion, No Wheezing, No Hemoptysis, No Pleuritic Pain, No Sputum, No Other Gastrointestinal: No Nausea, No Vomiting, No Abdominal Pain, No Diarrhea, No Constipation, No Melena, No Hematochezia, No Other Genitourinary: No Dysuria, No Frequency, No Incontinence, No Hematuria, No Retention, No Other Musculoskeletal: No other, No neck pain, No shoulder pain, No arm pain, No back pain; hand pain; No leg pain, No foot pain Skin: No Rash, No Lesions, No Jaundice, No Bruising, No Other Objective Vitals Vital Signs Date Time Temp Pulse Resp B/P (MAP) Pulse Ox O2 Delivery O2 Flow Rate FiO2 07/04/24 09:00 98.2 68 20 150/81 (104) 96 98.2 07/03/24 20:00 Room Air* 0 21 Intake/Output Intake and Output 07/04/24 07:00 Intake Total 2360 ml Balance 2360 ml Intake Oral 2060 ml IV Total 300 ml # Voids 6 General Appearance: Alert, Oriented X3, Cooperative, No acute distress Lungs: Clear to auscultation Cardiovascular: Regular rate, Normal S1 Abdomen: Normal bowel sounds, Soft, No tenderness Extremities: No edema Medications Current Medications Medications Dose Ordered Sig/[place] Route Start Time Stop Time Status Last Admin Dose Admin Vancomycin HCl 0 ml @ 0 mls/hr UD IV 07/01/24 18:15 Piperacillin Sod/ Tazobactam Sod 100 ml @ 100 mls/hr Q8HR IV 07/01/24 22:00 07/04/24 05:01 100 MLS/HR Lorazepam 0.5 mg Q6HP PRN PO 07/01/24 18:15 07/04/24 03:21 0.5 MG Al Hydrox/Mg Hydrox/Simethicone 30 ml Q6HP PRN PO 07/01/24 18:15 Docusate Sodium 100 mg BIDPRN PRN PO 07/01/24 18:15 Acetaminophen 650 mg Q6HP PRN PO 07/01/24 18:15 Temazepam 15 mg QHSP PRN PO 07/01/24 18:15 07/03/24 22:40 15 MG Acetaminophen/ Hydrocodone Bitart 1 tab Q4HP PRN PO 07/01/24 18:15 07/04/24 07:27 1 TAB Ondansetron HCl 4 mg Q4HP PRN IV 07/01/24 18:15 Vancomycin HCl 150 ml @ 150 mls/hr Q12H IV 07/02/24 18:00 Cancel Morphine Sulfate 4 mg Q4HPRN PRN IV 07/04/24 08:45 Vancomycin HCl 250 ml @ 250 mls/hr Q12H IV 07/04/24 18:00 Laboratory Results Laboratory Tests 07/02/24 04:55 07/03/24 06:20 07/04/24 04:48 Urinalysis Test 07/02/24 00:00 Urine Color Light-yellow (Yellow) Urine Clarity Clear (Clear) Urine pH 5.5 (5.0-9.0) Urine Specific [place] 1.022 (1.001-1.035) Urine Protein Trace (Negative) H Urine Ketones Trace (Negative) Urine Blood Negative /uL (Negative) Urine Nitrite Negative (Negative) Urine Bilirubin Negative (Negative) Urine Urobilinogen Normal mg/dL (Negative) Urine Leukocyte Esterase Negative /uL (Negative) Urine RBC 1 /hpf (0 - 3) Urine WBC 3 /hpf (0 - 3) Urine Squamous Epithelial Cells Few /hpf (<5) Urine Bacteria None seen /hpf (None Seen) Urine Glucose Normal mg/dL (Normal) Assessment/Plan Assessment/Plan Cellulitis of the right index finger, rule out abscess Rule out osteomyelitis Prediabetic Hypertension Leukocytosis Plan Continue IV antibiotics Zosyn and vancomycin Orthopedic consultation Resume the home medications CT scan of the right hand to rule out abscess formation 07/03/2024: Continue IV antibiotics with Zosyn and vancomycin Consult infectious disease Orthopedic consultation was obtained, the recommendation is for IV antibiotics and conservative management and Infectious Disease consult and no surgery 07/04/2024: Index finger right hand is developed an air-fluid collection at the 2nd phalanx with dark skin and fluctuation Called Dr. Quevedo, he stated he is not comfortable taking care of a hand surgery We will transfer to higher level of care Continue IV antibiotics with vancomycin and Zosyn ID consult Vital signs are stable Transfer to higher level of care for evaluation by a hand surgeon Plan discussed with: Patient My Orders Orders - ASIA HUBER MD Procedure Category Date Status Time Morphine Sulfate PHA 07/04/24 In Process Injection 08:45 Date of Service: Jul 04, 2024 Billing Provider: ASIA HUBER MD Common Visit Codes: NOT BILLABLE ASIA HUBER MD Jul 04, 2024 09:45
[2024-07-04] MEDS: MORPHINE SULFATE 4 MG/ML SYR/VIAL IV PRN (11:29)
--- NOTE | 2024-07-04 11:54 | DVHPN2 ---
Progress Note - Dictate Date Seen: Jul 04, 2024 Medical Necessity Reason Pt with a Central, PICC or Fol: No Subjective Patient was sitting up comfortably in bed during my evaluation reports no improvement of his symptoms since yesterday and instead feels as if it is still getting worse with more bruising noted to the palmar aspect of his index finger. Patient is otherwise feeling well denying any other complaint or concern during my evaluation. vital signs Vital Sign Date Time Temp Pulse Resp B/P (MAP) Pulse Ox O2 Delivery O2 Flow Rate FiO2 07/04/24 11:29 68 20 150/81 07/04/24 09:00 98.2 96 98.2 07/03/24 20:00 Room Air* 0 21 Total Intake and Output 07/03/24 07/03/24 07/04/24 15:00 23:00 07:00 Intake Total 1560 ml 800 ml Balance 1560 ml 800 ml medications Current Medications Medications Dose Ordered Sig/[place] Route Start Time Stop Time Status Last Admin Dose Admin Vancomycin HCl 0 ml @ 0 mls/hr UD IV 07/01/24 18:15 Piperacillin Sod/ Tazobactam Sod 100 ml @ 100 mls/hr Q8HR IV 07/01/24 22:00 07/04/24 05:01 100 MLS/HR Lorazepam 0.5 mg Q6HP PRN PO 07/01/24 18:15 07/04/24 03:21 0.5 MG Al Hydrox/Mg Hydrox/Simethicone 30 ml Q6HP PRN PO 07/01/24 18:15 Docusate Sodium 100 mg BIDPRN PRN PO 07/01/24 18:15 Acetaminophen 650 mg Q6HP PRN PO 07/01/24 18:15 Temazepam 15 mg QHSP PRN PO 07/01/24 18:15 07/03/24 22:40 15 MG Acetaminophen/ Hydrocodone Bitart 1 tab Q4HP PRN PO 07/01/24 18:15 07/04/24 07:27 1 TAB Ondansetron HCl 4 mg Q4HP PRN IV 07/01/24 18:15 Vancomycin HCl 150 ml @ 150 mls/hr Q12H IV 07/02/24 18:00 Cancel Morphine Sulfate 4 mg Q4HPRN PRN IV 07/04/24 08:45 07/04/24 11:29 4 MG Vancomycin HCl 250 ml @ 250 mls/hr Q12H IV 07/04/24 18:00 objective General appearance: A&O x4 in no acute distress HEENT: Normal ENT inspection, pharynx normal, TMs normal Neck: Full range of motion, nontender, normal inspection Respiratory: Chest nontender, without accessory muscle use, no respiratory distress Cardiovascular: No edema, no JVD, normal peripheral pulses Gastrointestinal: Soft, nontender, no organomegaly. Musculoskeletal: Right hand range of motion grossly intact with the exception to his right index finger which is grossly limited with pain on slight movement, bruising noted to the palmar aspect of his right index finger, normal capillary refill, neurovascularly intact. Skin: Dry, normal color, warm Lymphatic: No adenopathy laboratory and microbiology Laboratory Tests 07/04/24 04:48 07/03/24 06:20 07/02/24 04:55 Test 07/02/24 04:55 Range/Units Serum Glucose 92 74-106 mg/dL Assessment/Plan Right index finger cellulitis I had a lengthy discussion with the patient and given his progressively worsening symptoms and after discussing his case with Dr. Quevedo we have recommended an MRI of his right hand for further evaluation as well as a referral to an orthopedic hand specialist for a possible surgical intervention. Patient understood and agreed. Thank you for allowing us to participate in the care of your patient. Plan discussed with: Patient MCKAY PARDO Cher SPAULDING Jul 04, 2024 11:54
--- NOTE | 2024-07-04 12:54 | DVHINCON2 ---
Date of service: Jul 04, [address] Gramajo Reason for Consultation Hand pain History of Present Illness Patient is a 69-year-old male presents to the hospital for evaluation of recommendation for admission. Patient cut himself with a knife approximately one week ago. Next day he noted that he could not find the laceration and thought he was healed but began developing swelling and pain that progressively worsened. Patient came into the urgent care, he was evaluated and advised to come to the emergency department. He was admitted due to concerns of possible osteomyelitis / abscess of finger ID is consulted for antibiotics Dr Mcintyre did bedside I and D. Patient is otherwise feeling well denying any other complaints or concerns. he smokes tobacco Past Medical History Patient's past medical history is significant for hypertension. Family History: Diabetes mellitus G8 FATHER FH: kidney disease G8 FATHER Allergies: Coded Allergies: NO KNOWN ALLERGIES (Unverified , 07/01/24) Home Meds Active Scripts Naloxone HCl (Narcan) 4 Mg/0.1 Ml Spr, 4 MG NA PRESIDENT AND CMO, #2 SPRAY Prov:AYLA GRAMAJO MD 07/05/24 Hydrocodone-Acetaminophen (Hydrocodone Bitartrate/AC 5-325 mg) 1 Tab Tab, 1 TAB PO Q8HP PRN, #14 TAB Prov:AYLA GRAMAJO MD 07/05/24 Amoxicillin & Pot Clavulanate (AUGMENTIN TABLET) 875 Mg Tb, 875 MG PO BID for 10 Days, #20 TAB Prov:AYLA GRAMAJO MD 07/05/24 Reported Medications Albuterol Sulfate (VENTOLIN MDI) 90 Mcg Ih, 108 MCG IN, INH 07/03/24 Lisinopril (Lisinopril) 40 Mg Tab, 1 TAB PO DAILY 07/03/24 Metformin Hydrochloride (Metformin Hcl) 500 Mg Tab, 1 TAB PO BID 07/03/24 Amlodipine Besylate (Amlodipine Besylate) 10 Mg Tab, 1 TAB PO DAILY 07/03/24 Sildenafil Citrate (Sildenafil Citrate) 100 Mg Tab, TAB PO 07/03/24 Current Medications Current Medications Medications (Trade) Dose Ordered Sig/[place] Route PRN Reason Start Time Stop Time Status Last Admin Morphine Sulfate 4 mg Q4HPRN PRN IV SEVERE PAIN (7-10 PAIN SCALE) 07/04/24 08:45 07/04/24 11:29 Vancomycin HCl 250 ml @ 250 mls/hr Q12H IV 07/04/24 18:00 Review of Systems Constitutional: Yes: Weakness; No: Fever, Chills, Sweats, Malaise, Other Eyes: No: Pain, Vision change, Conjunctivae inflammation, Eyelid inflammation, Other, Redness ENT: No: Ear pain, Ear discharge, Nose pain, Nose discharge, Nose congestion, Mouth pain, Mouth swelling, Throat pain, Throat swelling, Other Respiratory: No: Cough, Dry, Shortness of breath, SOB with exertion, Wheezing, Hemoptysis, Pleuritic Pain, Sputum, Wheezing, Other Cardiovascular: No: Chest Pain, Palpitations, Orthopnea, Paroxysmal Noc. Dyspnea, Edema, Lt Headedness, Other Gastrointestinal: No: Nausea, Vomiting, Abdominal Pain, Diarrhea, Constipation, Melena, Hematochezia, Other Genitourinary: No Dysuria, No Frequency, No Incontinence, No Hematuria, No Retention, No Other Musculoskeletal: hand pain; No: other, neck pain, shoulder pain, arm pain, back pain, leg pain, foot pain Skin: No: Rash, Lesions, Jaundice, Bruising, Other Neurological: No: Weakness, Numbness, Incoordination, Change in speech, Confusion, Seizures, Other Vital Signs Vital Signs Date Time Temp Pulse Resp B/P (MAP) Pulse Ox O2 Delivery O2 Flow Rate FiO2 07/04/24 11:29 68 20 150/81 07/04/24 09:00 98.2 96 98.2 07/04/24 08:00 Room Air* 0 21 Physical Exam General Appearance: Alert, Oriented X3, mild distress HEENT: Atraumatic, PERRLA, EOMI Respiratory: Clear to auscultation, Normal air movement Cardiovascular: Normal S1, Normal S2 Abdominal: Normal bowel sounds, Soft, No tenderness Extremities: No clubbing, No cyanosis right index finger infection Skin: No rashes, No breakdown Neuro: Normal gait, Normal speech Psych/Mental Status: Mood NL Labs/Diagnostic Data Labs Test 07/04/24 04:48 07/03/24 06:20 07/02/24 04:55 07/02/24 00:00 Range/Units Creatinine 1.08 0.700-1.30 mg/dL Glomerular Filtration Rate Calc 73 >90 mL/min Vancomycin Level Trough 9.7 5-10 ug/mL White Blood Count 12.8 H 4.4-10.8 10^3/uL Red Blood Count 5.09 4.5-5.90 10^6/uL Hemoglobin 15.2 13.5-17.5 g/dL Hematocrit 44.6 41.0-53.0 % Mean Corpuscular Volume 87.7 80.0-100.0 fL Mean Corpuscular Hemoglobin 29.9 28.0-32.0 pg Mean Corpuscular Hemoglobin Concent 34.1 32.0-36.0 g/dL Red Cell Distribution Width 13.1 11.8-14.3 % Platelet Count 238 140-450 10^3/uL Mean Platelet Volume 8.7 6.9-10.8 fL Neutrophils (%) (Auto) 70.8 37.0-80.0 % Lymphocytes (%) (Auto) 14.4 10.0-50.0 % Monocytes (%) (Auto) 10.7 0.0-12.0 % Eosinophils (%) (Auto) 3.8 0.0-7.0 % Basophils (%) (Auto) 0.3 0.0-2.0 % Neutrophils # (Auto) 9.1 H 1.6-8.6 10 ^3/uL Lymphocytes # (Auto) 1.9 0.4-5.4 10 ^3/uL Monocytes # (Auto) 1.4 H 0-1.3 10 ^3/uL Eosinophils # (Auto) 0.5 0-0.8 10 ^3/uL Basophils # (Auto) 0 0-0.2 10 ^3/uL Nucleated Red Blood Cells 0.0 % Hemoglobin A1c 5.8 H <5.7 % A1C Sodium Level 138 136-145 mmol/L Potassium Level 4.2 3.5-5.1 mmol/L Chloride Level 107 98-107 mmol/L Carbon Dioxide Level 21 20-31 mmol/L Anion Gap 10 5-15 Blood Urea Nitrogen 16 9-23 mg/dL BUN/Creatinine Ratio 16.3 10.0-20.0 Serum Glucose 92 74-106 mg/dL Calcium Level 9.7 8.7-10.4 mg/dL Urine Color Light-yellow Yellow Urine Clarity Clear Clear Urine pH 5.5 5.0-9.0 Urine Specific [place] 1.022 1.001-1.035 Urine Protein Trace H Negative Urine Ketones Trace Negative Urine Blood Negative Negative /uL Urine Nitrite Negative Negative Urine Bilirubin Negative Negative Urine Urobilinogen Normal Negative mg/dL Urine Leukocyte Esterase Negative Negative /uL Urine RBC 1 0 - 3 /hpf Urine WBC 3 0 - 3 /hpf Urine Squamous Epithelial Cells Few <5 /hpf Urine Bacteria None seen None Seen /hpf Urine Glucose Normal Normal mg/dL Test 07/01/24 14:48 Range/Units Lactic Acid Level 1.0 0.4-2.0 mmol/L Assessment Patient is a 69-year-old male presents to the hospital with: right finger abscess ( index finger) Smoker osteoporotic changes on x ray Recommendations: s/p I and D bedside follow cultures Current antibiotics: Vancomycin HCL IV and Zosyn IV Thank you for consult. Plan discussed with: NANDO Tovar MD Jul 04, 2024 12:54
--- NOTE | 2024-07-04 14:23 | DVHPN2 ---
Subjective I am assuming the care of the patient was from today onwards. 69-year-old male with a known history of hypertension initially presented to the hospital with injury to right index finger found to have possibly cellulitis/osteomyelitis with suspected foreign body in the right index finger. Patient is currently complaining of pain in the right index finger, vascular surgery Dr. Mcintyre we will do bedside I&D. Patient was currently agrees to current plan of care. Changes from previous H/P or p: No Changes Eyes: No Pain, No Vision change, No Conjunctivae inflammation, No Eyelid inflammation, No Other, No Redness ENT: No Ear pain, No Ear discharge, No Nose pain, No Nose discharge, No Nose congestion, No Mouth pain, No Mouth swelling, No Throat pain, No Throat swelling, No Other Cardiovascular: No Chest Pain, No Palpitations, No Orthopnea, No Paroxysmal Noc. Dyspnea, No Edema, No Lt Headedness, No Other Respiratory: No Cough, No Dry, No Shortness of breath, No SOB with excertion, No Wheezing, No Hemoptysis, No Pleuritic Pain, No Sputum, No Other Gastrointestinal: No Nausea, No Vomiting, No Abdominal Pain, No Diarrhea, No Constipation, No Melena, No Hematochezia, No Other Genitourinary: No Dysuria, No Frequency, No Incontinence, No Hematuria, No Retention, No Other Musculoskeletal: No other, No neck pain, No shoulder pain, No arm pain, No back pain; hand pain; No leg pain, No foot pain Skin: No Rash, No Lesions, No Jaundice, No Bruising, No Other Objective Vitals Vital Signs Date Time Temp Pulse Resp B/P (MAP) Pulse Ox O2 Delivery O2 Flow Rate FiO2 07/04/24 11:59 69 18 124/72 07/04/24 09:00 98.2 96 98.2 07/04/24 08:00 Room Air* 0 21 Intake/Output Intake and Output 07/04/24 06:59 Intake Total 2360 ml Balance 2360 ml Intake Oral 2060 ml IV Total 300 ml # Voids 6 Exam HEENT pupils are reactive Neck is supple CV is S1-S2 regular rate and rhythm Diminished breath sound bases GI posterior bowel sound Extremity no edema [employer] no motor deficits Right index finger has fluctuated swelling on the tuft of the finger, suspected splinter. General Appearance: Alert, Oriented X3, Cooperative, No acute distress Lungs: Clear to auscultation Cardiovascular: Regular rate, Normal S1 Abdomen: Normal bowel sounds, Soft, No tenderness Extremities: No edema Medications Current Medications Medications Dose Ordered Sig/[place] Route Start Time Stop Time Status Last Admin Dose Admin Vancomycin HCl 0 ml @ 0 mls/hr UD IV 07/01/24 18:15 Piperacillin Sod/ Tazobactam Sod 100 ml @ 100 mls/hr Q8HR IV 07/01/24 22:00 07/04/24 05:01 100 MLS/HR Lorazepam 0.5 mg Q6HP PRN PO 07/01/24 18:15 07/04/24 03:21 0.5 MG Al Hydrox/Mg Hydrox/Simethicone 30 ml Q6HP PRN PO 07/01/24 18:15 Docusate Sodium 100 mg BIDPRN PRN PO 07/01/24 18:15 Acetaminophen 650 mg Q6HP PRN PO 07/01/24 18:15 Temazepam 15 mg QHSP PRN PO 07/01/24 18:15 07/03/24 22:40 15 MG Acetaminophen/ Hydrocodone Bitart 1 tab Q4HP PRN PO 07/01/24 18:15 07/04/24 07:27 1 TAB Ondansetron HCl 4 mg Q4HP PRN IV 07/01/24 18:15 Vancomycin HCl 150 ml @ 150 mls/hr Q12H IV 07/02/24 18:00 Cancel Morphine Sulfate 4 mg Q4HPRN PRN IV 07/04/24 08:45 07/04/24 11:29 4 MG Vancomycin HCl 250 ml @ 250 mls/hr Q12H IV 07/04/24 18:00 Laboratory Results Laboratory Tests 07/02/24 04:55 07/03/24 06:20 07/04/24 04:48 Urinalysis Test 07/02/24 00:00 Urine Color Light-yellow (Yellow) Urine Clarity Clear (Clear) Urine pH 5.5 (5.0-9.0) Urine Specific [place] 1.022 (1.001-1.035) Urine Protein Trace (Negative) H Urine Ketones Trace (Negative) Urine Blood Negative /uL (Negative) Urine Nitrite Negative (Negative) Urine Bilirubin Negative (Negative) Urine Urobilinogen Normal mg/dL (Negative) Urine Leukocyte Esterase Negative /uL (Negative) Urine RBC 1 /hpf (0 - 3) Urine WBC 3 /hpf (0 - 3) Urine Squamous Epithelial Cells Few /hpf (<5) Urine Bacteria None seen /hpf (None Seen) Urine Glucose Normal mg/dL (Normal) Assessment/Plan Assessment/Plan 69-year-old male with a known history of hypertension initially presented to the hospital with a right index finger injury found to have 1. Right index finger cellulitis/osteomyelitis 2. Suspected foreign body in the right index finger status post injury about a week ago. 3. Hypertension -IV antibiotics ,vascular surgery consultation for I and D, follow up Infectious Disease recommendations. Plan discussed with: Patient My Orders Orders - AYLA GRAMAJO MD Procedure Category Date Status Time Consult CONS 07/04/24 Transmitted Vascular/Endovascular 13:56 Date of Service: Jul 04, 2024 Billing Provider: AYLA GRAMAJO MD Common Visit Codes: NOT BILLABLE AYLA GRAMAJO MD Jul 04, 2024 14:23
[2024-07-04] MEDS: LIDOCAINE 1% HCL (LOCAL ANESTH.) INJ 20ML MDV ID ONE (14:45)
--- NOTE | 2024-07-04 15:03 | DVHCONRES ---
Date Seen: Jul 04, 2024 Resident Creating Document: WOLF MCCANN Jr., MD Referring Physician Inez Reason for Consultation right 1st finger infection History of Present Illness Mr. Rojas is a 69-year-old male who came to the hospital due to him cutting himself with a knife approximately one week ago where the patient noted that the next day he could not find the laceration and thought he was healed but began developing swelling and pain that progressively worsened. Patient came into the urgent care and was evaluated and advised to come to the emergency department and was admitted due to concerns of possible osteomyelitis. Patient is otherw ise feeling well denying any other complaints or concerns during my evaluation denying any chest pain, shortness of breath, nausea, vomiting, fever, or chills. Past Medical History Hypertension Past Surgical History Donor nephrectomy Family History: Diabetes mellitus G8 FATHER FH: kidney disease G8 FATHER Social History Pack-a-day smoker for many years Allergies: Coded Allergies: NO KNOWN ALLERGIES (Unverified , 07/01/24) Home Meds Reported Medications Albuterol Sulfate (VENTOLIN MDI) 90 Mcg Ih, 108 MCG IN, INH 07/03/24 Lisinopril (Lisinopril) 40 Mg Tab, 1 TAB PO DAILY 07/03/24 Metformin Hydrochloride (Metformin Hcl) 500 Mg Tab, 1 TAB PO BID 07/03/24 Amlodipine Besylate (Amlodipine Besylate) 10 Mg Tab, 1 TAB PO DAILY 07/03/24 Sildenafil Citrate (Sildenafil Citrate) 100 Mg Tab, TAB PO 07/03/24 Current Medications Current Medications Medications (Trade) Dose Ordered Sig/[place] Route PRN Reason Start Time Stop Time Status Last Admin Morphine Sulfate 4 mg Q4HPRN PRN IV SEVERE PAIN (7-10 PAIN SCALE) 07/04/24 08:45 07/04/24 11:29 Vancomycin HCl 250 ml @ 250 mls/hr Q12H IV 07/04/24 18:00 Review of Systems All systems reviewed otherwise negative other than what is in HPI. Vital Signs Vital Signs Date Time Temp Pulse Resp B/P (MAP) Pulse Ox O2 Delivery O2 Flow Rate FiO2 07/04/24 11:59 69 18 124/72 07/04/24 09:00 98.2 96 98.2 07/04/24 08:00 Room Air* 0 21 Physical Exam Head eyes ears nose and throat exam as Arnold HR conjunctiva was pink neck is supple no JVD no lymphadenopathy no carotid bruits lungs are clear to auscultation heart was regular rate rhythm abdomen was soft nontender no pulsatile abdominal mass or bruits lower extremities palpable femoral and pedal pulses bilaterally his right 1st index finger on the palmar aspect there was pus pocket underneath the skin proximally 1-1/2 x 1-1/2 cm. Patient was consented for and I and D of the right 1st finger. This area was cleansed with Betadine 1% lidocaine was injected into the medial and lateral meta carpal phalangeal joint regions to create a digital block. Once the finger was numb the abscess was incised with 11 blade purulent drainage was excised the culture was sent off. The wound was then vigorously irrigated and bandaged with gauze and dry dressing. Patient tolerated this well. Labs/Diagnostic Data Labs Test 07/04/24 04:48 07/03/24 06:20 07/02/24 04:55 07/02/24 00:00 Range/Units Creatinine 1.08 0.700-1.30 mg/dL Glomerular Filtration Rate Calc 73 >90 mL/min Vancomycin Level Trough 9.7 5-10 ug/mL White Blood Count 12.8 H 4.4-10.8 10^3/uL Red Blood Count 5.09 4.5-5.90 10^6/uL Hemoglobin 15.2 13.5-17.5 g/dL Hematocrit 44.6 41.0-53.0 % Mean Corpuscular Volume 87.7 80.0-100.0 fL Mean Corpuscular Hemoglobin 29.9 28.0-32.0 pg Mean Corpuscular Hemoglobin Concent 34.1 32.0-36.0 g/dL Red Cell Distribution Width 13.1 11.8-14.3 % Platelet Count 238 140-450 10^3/uL Mean Platelet Volume 8.7 6.9-10.8 fL Neutrophils (%) (Auto) 70.8 37.0-80.0 % Lymphocytes (%) (Auto) 14.4 10.0-50.0 % Monocytes (%) (Auto) 10.7 0.0-12.0 % Eosinophils (%) (Auto) 3.8 0.0-7.0 % Basophils (%) (Auto) 0.3 0.0-2.0 % Neutrophils # (Auto) 9.1 H 1.6-8.6 10 ^3/uL Lymphocytes # (Auto) 1.9 0.4-5.4 10 ^3/uL Monocytes # (Auto) 1.4 H 0-1.3 10 ^3/uL Eosinophils # (Auto) 0.5 0-0.8 10 ^3/uL Basophils # (Auto) 0 0-0.2 10 ^3/uL Nucleated Red Blood Cells 0.0 % Hemoglobin A1c 5.8 H <5.7 % A1C Sodium Level 138 136-145 mmol/L Potassium Level 4.2 3.5-5.1 mmol/L Chloride Level 107 98-107 mmol/L Carbon Dioxide Level 21 20-31 mmol/L Anion Gap 10 5-15 Blood Urea Nitrogen 16 9-23 mg/dL BUN/Creatinine Ratio 16.3 10.0-20.0 Serum Glucose 92 74-106 mg/dL Calcium Level 9.7 8.7-10.4 mg/dL Urine Color Light-yellow Yellow Urine Clarity Clear Clear Urine pH 5.5 5.0-9.0 Urine Specific [place] 1.022 1.001-1.035 Urine Protein Trace H Negative Urine Ketones Trace Negative Urine Blood Negative Negative /uL Urine Nitrite Negative Negative Urine Bilirubin Negative Negative Urine Urobilinogen Normal Negative mg/dL Urine Leukocyte Esterase Negative Negative /uL Urine RBC 1 0 - 3 /hpf Urine WBC 3 0 - 3 /hpf Urine Squamous Epithelial Cells Few <5 /hpf Urine Bacteria None seen None Seen /hpf Urine Glucose Normal Normal mg/dL Test 07/01/24 14:48 Range/Units Lactic Acid Level 1.0 0.4-2.0 mmol/L Assessment Right 1st finger abscess Plan/Recommendation Right 1st finger abscess drain with incision and drainage. Wound culture sent off. Continue antibiotics. Daily dressing changes including Medihoney and dry gauze. Plan discussed with: Patient WOLF MCCANN Jr., MD Jul 04, 2024 15:03
[2024-07-04 17:00] VITALS: BP 145/82; PULSE 74; RESP 19; TEMP 97.9; O2SAT 96
[2024-07-04] MEDS: VANCOMYCIN 1GM/250ML KIT 250 ML IV SCH (19:35)
[2024-07-04 21:00] VITALS: BP 119/82; PULSE 73; RESP 18; TEMP 98.3; O2SAT 95
[2024-07-05 01:00] VITALS: BP 118/71; PULSE 66; RESP 18; TEMP 98.2; O2SAT 93
[2024-07-05 05:00] VITALS: BP 132/70; PULSE 66; RESP 18; TEMP 98.4; O2SAT 96
[2024-07-05 07:45] LABS: Calcium 9.8 mg/dL (8.7-10.4); Chloride 105 mmol/L (98-107); Potassium 4.3 mmol/L (3.5-5.1); Sodium 137 mmol/L (136-145)
[2024-07-05 07:46] LABS: Anion Gap 9 (5-15); Carbon Dioxide 23 mmol/L (20-31)
[2024-07-05 07:51] LABS: BUN/Creatinine Ratio 13.9 (10.0-20.0); Blood Urea Nitrogen 15 mg/dL (9-23); Glucose 102 mg/dL (74-106)
[2024-07-05 08:00] VITALS: PULSE 67
[2024-07-05 08:57] VITALS: BP 145/80; PULSE 67; RESP 20; TEMP 98; O2SAT 92
--- NOTE | 2024-07-05 11:47 | DVHPN2 ---
Progress Note - Dictate Date Seen: Jul 05, 2024 Medical Necessity Reason Pt with a Central, PICC or Fol: No Subjective Patient was seen and evaluated at bedside. s/p vascular surgery Dr. Mcintyre bedside I&D on 07/04 vital signs Vital Sign Date Time Temp Pulse Resp B/P (MAP) Pulse Ox O2 Delivery O2 Flow Rate FiO2 07/05/24 08:57 98.0 67 20 145/80 (101) 92 98.0 07/04/24 20:00 Room Air* 0 21 Total Intake and Output 07/04/24 07/04/24 07/05/24 15:00 23:00 07:00 Intake Total 1102 ml 670 ml Balance 1102 ml 670 ml medications Current Medications Medications Dose Ordered Sig/[place] Route Start Time Stop Time Status Last Admin Dose Admin Vancomycin HCl 0 ml @ 0 mls/hr UD IV 07/01/24 18:15 Piperacillin Sod/ Tazobactam Sod 100 ml @ 100 mls/hr Q8HR IV 07/01/24 22:00 07/05/24 05:00 100 MLS/HR Lorazepam 0.5 mg Q6HP PRN PO 07/01/24 18:15 07/04/24 03:21 0.5 MG Al Hydrox/Mg Hydrox/Simethicone 30 ml Q6HP PRN PO 07/01/24 18:15 Docusate Sodium 100 mg BIDPRN PRN PO 07/01/24 18:15 Acetaminophen 650 mg Q6HP PRN PO 07/01/24 18:15 Temazepam 15 mg QHSP PRN PO 07/01/24 18:15 07/04/24 22:20 15 MG Acetaminophen/ Hydrocodone Bitart 1 tab Q4HP PRN PO 07/01/24 18:15 07/04/24 07:27 1 TAB Ondansetron HCl 4 mg Q4HP PRN IV 07/01/24 18:15 Vancomycin HCl 150 ml @ 150 mls/hr Q12H IV 07/02/24 18:00 Cancel Morphine Sulfate 4 mg Q4HPRN PRN IV 07/04/24 08:45 07/04/24 21:18 4 MG Vancomycin HCl 250 ml @ 250 mls/hr Q12H IV 07/05/24 18:00 objective General Appearance: Alert, Oriented X3, mild distress HEENT: Atraumatic, PERRLA, EOMI Respiratory: Clear to auscultation, Normal air movement Cardiovascular: Normal S1, Normal S2 Abdominal: Normal bowel sounds, Soft, No tenderness Extremities: No clubbing, No cyanosis right index finger dresing Skin: No rashes, No breakdown Neuro: Normal gait, Normal speech Psych/Mental Status: Mood NL laboratory and microbiology Laboratory Tests 07/05/24 06:56 07/03/24 06:20 Test 07/05/24 06:56 Range/Units Serum Glucose 102 74-106 mg/dL Assessment/Plan Patient is a 69-year-old male presents to the hospital with: right finger abscess ( index finger) group B streptococcus infection Smoker osteoporotic changes on x ray Recommendations: s/p I and D bedside follow cultures: prelim groupB strep he wants to go home will taper to oral Keflex 500mg QID for 14 days or Augmentin 875 BID for 14 days to help with compliance f/u with Surgery and ID as outpt smoking cessation couselling greater than 3 minutes Thank you for consult. Plan discussed with: Patient, Other NANDO CHANEY MD Jul 05, 2024 11:47
[2024-07-05 13:00] VITALS: BP 141/87; PULSE 69; RESP 20; TEMP 98; O2SAT 95
[2024-07-05] MEDS ORDERED: HYDR-4902 PO (14:36)
[2024-07-05] MEDS ORDERED: AUG875T PO (14:36)
[2024-07-05] MEDS ORDERED: NALO4SPR2 (14:39)
[2024-07-05] MEDS: AMOXICILLIN/CLAVUL 875 MG TAB PO ONE (16:17)
[2024-07-05 16:27] VITALS: BP 145/80; PULSE 67; RESP 16; TEMP 97.7; O2SAT 92
[2024-07-05] MEDS ORDERED: VANCOMYCIN 1GM/250ML KIT 250 ML IV SCH (18:00)
== END 2024-07-05 17:45 | disposition home health service (06) | DRG 540 ==
LOC: ER 13:15 → OVERFLOW 18:05 → WEST WING 07-02 18:05
PROVIDERS: ADMIT Hospitalist; ATTEND Internal Medicine
DX: M86.8X4 Other osteomyelitis, hand (principal); L02.511 Cutaneous abscess of right hand; L03.011 Cellulitis of right finger; R73.03 Prediabetes; I10 Essential (primary) hypertension; D72.829 Elevated white blood cell count, unspecified; Z83.3 Family history of diabetes mellitus; Z79.899 Other long term (current) drug therapy
CPT/HCPCS: 36415; 73130; 73200; 80048; 80202; 81001; 82565; 83036; 83605; 85025; 87205; 90715; G0378; J2003; J2405; J2543; J7060